=== PATIENT | male | born 1995 | race Caucasian/White ===

== ENCOUNTER 2021-02-08 10:30 | Emergency (ER) | payer OTHER ==
[~2021-02-08] VITALS: Ht 182.9 cm; Wt 68.0 kg
[2021-02-08 10:37] VITALS: BP 133/94
--- NOTE | 2021-02-08 12:06 | NUR ---
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
[2021-02-08] MEDS ORDERED: DEXAMETHASONE 4 MG TABLET ONE (12:23)
[2021-02-08] MEDS ORDERED: DEXAMETHASONE 4 MG TABLET PO ONE (12:30)
[2021-02-08 12:54] LABS: RAPID INFLUENZA A Negative (Negative); RAPID INFLUENZA B Negative (Negative)
== END 2021-02-08 13:15 | disposition home or self-care (01) ==
LOC: ED 13:09
DX: J06.9 Acute upper respiratory infection, unspecified (principal); Z20.822 Contact with and (suspected) exposure to COVID-19
CPT/HCPCS: 87400; 99283; U0003; U0005